=== PATIENT | female | born 1985 | race Caucasian/White ===

== ENCOUNTER 2020-01-24 07:03 | Day surgery (SDC) | payer OTHER ==
[2020-01-23 13:09] VITALS: BMI 25.0
[2020-01-24] MEDS ORDERED: PROPOFOL 20 ML ONE ×2 (08:25→08:45)
[2020-01-24] MEDS ORDERED: MIDAZOLAM HCL 2 MG/2 ML SINGLE DOSE VIAL ONE (08:25)
[2020-01-24] MEDS ORDERED: KETOROLAC TROMETHAMINE 30 MG/1 ML VIAL IVPUSH PRN (09:08)
[2020-01-24] MEDS ORDERED: ONDANSETRON 4 MG/2 ML VIAL IVPUSH PRN ×2 (09:08→12:12)
[2020-01-24] MEDS ORDERED: BUPIVACAINE HCL/PF 0.25% (2.5MG/ML) 10 ML VIAL ONE (09:12)
[2020-01-24] MEDS ORDERED: DEXTROSE 5%-0.45% SALINE 1,000 ML IV SCH (09:15)
[2020-01-24] MEDS ORDERED: DEXAMETHASONE SOD PHOSPHATE 4 MG/1 ML VIAL ONE (09:36)
[2020-01-24] MEDS ORDERED: ceFAZolin SODIUM 1 GM VIAL ONE (09:42)
[2020-01-24] MEDS ORDERED: BUPIVACAINE HCL/PF 0.25% (2.5MG/ML) 10 ML VIAL IJ ONE (10:07)
[2020-01-24 11:14] VITALS: PULSE 75
[2020-01-24 11:30] VITALS: BP 124/67
[2020-01-24 12:03] VITALS: TEMP 98.4
[2020-01-24] MEDS ORDERED: oxyCODONE HCL 5 MG TABLET PO PRN ×2 (12:12)
[2020-01-24] MEDS ORDERED: PROMETHAZINE HCL 25 MG/1 ML VIAL IVPUSH PRN (12:12)
== END 2020-01-24 12:51 | disposition home or self-care (01) ==
LOC: FASU 07:03
PROVIDERS: ATTEND Surgery Surgical Oncology
PROC: 0HBY0ZZ Excision of Supernumerary Breast, Open Approach (ICD-10-PCS; principal; 2020-01-24 09:44)
DX: Q83.1 Accessory breast (principal)
CPT/HCPCS: 84703; 88304-TC; 94760